=== PATIENT | female | born 1990 | race African-American/Black ===

== ENCOUNTER → 2017-07-30 | Outpatient (REF) | payer OTHER ==
[2017-07-30 18:47] LABS: COMPLEMENT C3 101 MG/DL (90-180)
[2017-07-30 19:03] LABS: TOTAL PROTEIN,RANDOM URINE 8.9 MG/DL (0.0-12.0)
[2017-07-30 19:03] LABS: CREATININE,RANDOM URINE 40.1 MG/DL
[2017-08-03 00:08] LABS: ANA (HEP2) Positive (.); ANTI DOUBLE STRAND-DNA AB 15 IU/mL (0-9)
== END ==
LOC: M LAB REF 17:03
DX: M32.14 Glomerular disease in systemic lupus erythematosus (principal)

== ENCOUNTER → 2017-11-17 | Outpatient (REF) | payer OTHER ==
[2017-11-18 15:38] LABS: TOTAL PROTEIN,RANDOM URINE 58.3 MG/DL (0.0-12.0)
== END ==
LOC: M LAB REF 14:03
DX: M32.14 Glomerular disease in systemic lupus erythematosus (principal)

== ENCOUNTER 2017-12-17 09:54 | Emergency (ER) | payer OTHER ==
[2017-12-17] MEDS: diazePAM 5 MG TAB PO (11:10)
[2017-12-17] MEDS: KETOROLAC 60 MG/2 ML VIAL (J1885) IM (11:10)
== END 2017-12-17 11:44 | disposition home or self-care (01) ==
LOC: M ED 09:54
DX: M62.838 Other muscle spasm (principal); S60.455A Superficial foreign body of left ring finger, initial encounter; W49.04XA Ring or other jewelry causing external constriction, initial encounter; Y92.89 Other specified places as the place of occurrence of the external cause; M32.9 Systemic lupus erythematosus, unspecified; Z79.52 Long term (current) use of systemic steroids; Z79.899 Other long term (current) drug therapy
CPT/HCPCS: J1885